=== PATIENT | male | born 2000 | race Two or more races ===

== ENCOUNTER 2023-09-06 17:58 | Emergency (ER) | payer BC, MEDICAID ==
[~2023-09-06] VITALS: Ht 175.3 cm; Wt 80.7 kg
[2023-09-06] MEDS ORDERED: IBUPROFEN 600 MG TABLET PO ONE (18:30)
[2023-09-06] MEDS ORDERED: IBUPROFEN 600 MG TABLET ONE (18:34)
[2023-09-06] MEDS ORDERED: IBUP-1955 PO (18:46)
[2023-09-06 19:44] VITALS: BP 128/79; TEMP 98.4; O2SAT 100
== END 2023-09-06 19:44 | disposition home or self-care (01) ==
LOC: ER 17:58
DX: S83.004A Unspecified dislocation of right patella, initial encounter (principal); X58.XXXA Exposure to other specified factors, initial encounter; Y93.89 Activity, other specified; Y92.89 Other specified places as the place of occurrence of the external cause; Y99.8 Other external cause status
CPT/HCPCS: J7060